=== PATIENT | male | born 1965 | race Caucasian/White ===

== ENCOUNTER 2018-02-20 15:08 | Emergency (ER) | payer SELFPAY ==
[~2018-02-20] VITALS: Ht 170.2 cm; Wt 78.0 kg
[~2018-02-20 15:08] MED LIST: BACT800T5 PO; CLIN1CAP5 PO; DICL75 PO
[2018-02-20 15:19] VITALS: BP 190/105; PULSE 102; RESP 16; TEMP 98; O2SAT 97
[2018-02-20] MEDS ORDERED: SUBO2MIS SL (15:28)
[2018-02-20] MEDS ORDERED: CLIN300C5 PO (17:41)
--- NOTE | 2018-02-20 17:41 | PD ---
HPI Chief Complaint: Skin Problem Time Seen by Provider: 16:21 Travel History International Travel<30 days: No Contact w/Intl Traveler<30days: No Traveled to known affect area: No History of Present Illness HPI This is a 52-year-old male here with abscess to his left forearm 3 days. He reports recent relapse and injected methamphetamines. He denies fever chills. He reports the area has become increasingly more painful and swollen. He has had previous similar abscesses in the past. No chest pain or shortness of breath. Symptom severity is moderate. No aggravating or alleviating factors. PFSH Past Medical History Medical History: Denies Significant Hx Cancer: No Cardiovascular Problems: Yes (EXERCISE STRESSTEST: 2011? 2013? NEGATIVE PER PT ) High Cholesterol: Yes Chest Pain: Yes Diabetes: No Diminished Hearing: No Endocrine: No Genitourinary: No Hypertension: Yes Immune Disorder: No Musculoskeletal: No Neurologic: No Psychiatric: No Reproductive: No Respiratory: No Past Surgical History Other Surgery: Yes Social History Alcohol Use: No Tobacco Use: Yes (1 PPD) Substance Use: Yes (Hx IVDA w/ Dilaudid, used Suboxone IV) Allergies-Medications (Allergen,Severity, Reaction): Coded Allergies: No Known Allergies (Verified Adverse Reaction, Unknown, 02/20/18) Reported Meds & Prescriptions Reported Meds & Active Scripts Active Clindamycin (Clindamycin HCl) 300 Mg Cap 300 Mg PO Q6H 10 Days Reported Suboxone Sublingual Film (Buprenorphine-Naloxone Sublingual Film) 2-0.5 Mg Film 1 Film SL BID Unique ID number required: Physical Exam Narrative GENERAL: Alert and well-appearing 52-year-old male SKIN: Warm and dry. 2.5 centimeter fluctuant abscess to the left forearm volar aspect with surrounding erythema HEAD: Normocephalic. EYES: No scleral icterus. No injection or drainage. NECK: Supple CARDIOVASCULAR: Regular rate and rhythm RESPIRATORY: Breath sounds equal bilaterally. No accessory muscle use. GASTROINTESTINAL: Abdomen soft, non-tender, nondistended. MUSCULOSKELETAL: No cyanosis, or edema. Left upper extremity: 2.5CM fluctuant abscess to the left forearm volar aspect with surrounding cellulitis. 2+ distal pulses. Normal sensation. Brisk cap refill. Data Data Last Documented VS Vital Signs Date Time Temp Pulse Resp B/P (MAP) Pulse Ox O2 Delivery O2 Flow Rate FiO2 4/2/18 15:19 98.0 102 16 190/105 (133) 97 Orders Orders Splint Or Brace Apply/Monitor (02/20/18 17:42) MDM Medical Decision Making Medical Screen Exam Complete: Yes Emergency Medical Condition: Yes Differential Diagnosis Abscess, cellulitis, folliculitis Narrative Course 52-year-old male here with an abscess to left forearm. He is nontoxic appearing. Vital signs are stable. Incision and drainage was performed. Patient was placed on clindamycin. Return precautions were discussed. Patient verbalized understanding and agrees to plan Procedures Procedure Narrative INCISION AND DRAINAGE OF ABSCESS: The area was prepped and was sterilely draped. A subcutaneous wheal of 1% lidocaine with epi a total number 2 mL was used to anesthetize the area properly. A number 11 scalpel was used to make a 0.5 -cm incision across the area of the abscess. The abscess was drained, complex loculations were broken down, and irrigated with normal saline. Diagnosis Primary Impression: Abscess Referrals: Primary Care Physician Additional Instructions: Medication as directed. Follow-up with her primary doctor. Return to the emergency department if you develop new or worsening symptoms. Scripts Clindamycin (Clindamycin) 300 Mg Cap 300 MG PO Q6H for Infection for 10 Days, #40 CAP 0 Refills Prov: Chantale Alfredo 02/20/18 Disposition: 01 DISCHARGE HOME Condition: Stable Chantale Alfredo Feb 20, 2018 17:41
== END 2018-02-20 17:55 | disposition home or self-care (01) ==
LOC: PHEFT 15:08
DX: L02.414 Cutaneous abscess of left upper limb (principal); E78.00 Pure hypercholesterolemia, unspecified; I10 Essential (primary) hypertension; F17.200 Nicotine dependence, unspecified, uncomplicated; F11.90 Opioid use, unspecified, uncomplicated
CPT/HCPCS: 10060